=== PATIENT | female | born 1970 | race African-American/Black ===

== ENCOUNTER 2017-03-28 14:54 | Outpatient (CLI) | payer BC | END 2017-03-28 14:55 | disposition home or self-care (01) | LOC: BICMAMMO 14:54 | PROVIDERS: ATTEND Physician Assistant | DX: Z12.31 Encounter for screening mammogram for malignant neoplasm of breast (principal); N63.20 Unspecified lump in the left breast, unspecified quadrant | CPT/HCPCS: 77063; 77067 ==

== ENCOUNTER 2018-05-08 07:59 | Outpatient (CLI) | payer BC ==
--- NOTE | 2018-05-08 11:14 | MMO ---
Bilateral MAMMO Bilat Screen [facility]. CLINICAL HISTORY: Patient is 47 years old and is seen for screening. The patient has no family history of breast cancer. The patient has no personal history of cancer. The patient has a history of left needle biopsy in 2011 - benign. VIEWS: The views performed were: bilateral craniocaudal with tomosynthesis and bilateral mediolateral oblique with tomosynthesis. FILMS COMPARED: The present examination has been compared to prior imaging studies performed at [facility] on 03/28/2017, and at [facility] on 11/20/2011, 11/24/2011, 12/17/2012, 02/11/2014 and 03/11/2015. MAMMOGRAM FINDINGS: There are scattered fibroglandular densities. There is a stable round mass with associated biopsy clip seen in the left breast. There are no suspicious masses, suspicious calcifications, or new areas of architectural distortion. IMPRESSION: THERE IS NO MAMMOGRAPHIC EVIDENCE OF MALIGNANCY. A ROUTINE FOLLOW-UP MAMMOGRAM IN 1 YEAR IS RECOMMENDED. THE RESULTS OF THIS EXAM WERE SENT TO THE PATIENT. ACR BI-RADS Category 2 - Benign finding MAMMOGRAPHY NOTE: 1. A negative mammogram report should not delay a biopsy if a dominant of clinically suspicious mass is present. 2. Approximately 10% to 15% of breast cancers are not detected by mammography. 3. Adenosis and dense breasts may obscure an underlying neoplasm.
== END 2018-05-08 08:00 | disposition home or self-care (01) ==
LOC: BICMAMMO 07:59
PROVIDERS: ATTEND Physician Assistant
DX: Z12.31 Encounter for screening mammogram for malignant neoplasm of breast (principal)
CPT/HCPCS: 77063; 77067

== ENCOUNTER 2018-09-09 07:32 | Outpatient (CLI) | payer BC ==
--- NOTE | 2018-09-09 07:54 | ULT ---
Renal sonogram HISTORY: Hypertension. FINDINGS: Right kidney measures up to 8.2 cm and the left measures up to 9.2 cm. Each has a normal so nographic appearance. No evidence of mass, stone, or hydronephrosis. Urinary bladder is incompletely distended without focal abnormality. IMPRESSION: Normal exam.
== END 2018-09-09 07:33 | disposition home or self-care (01) ==
LOC: BICULT 07:32
PROVIDERS: ATTEND Internal Medicine Nephrology
DX: I12.9 Hypertensive chronic kidney disease with stage 1 through stage 4 chronic kidney disease, or unspecified chronic kidney disease (principal); N18.3 Chronic kidney disease, stage 3 (moderate)
CPT/HCPCS: 76770

== ENCOUNTER 2018-11-11 06:53 | Outpatient (CLI) | payer BC ==
--- NOTE | 2018-11-11 07:40 | ULT ---
Renal sonogram with duplex evaluation HISTORY: Renal failure. FINDINGS: The right kidney measures up to 8.7 cm length and the left 11.1 cm. Each has a normal sonog raphic appearance without evidence of mass, stone, or hydronephrosis. Urinary bladder is unremarkable with bilateral ureteral jets. Incidental note of uterine fibroid and heterogeneous echot exture. Good color and spectral Doppler flow within each renal artery and the aorta. No abnormally elevated p eak systolic velocities. Resistive index associated with the arcuate arteries of the right kidney is 0.7 and the left kidney 0.6. IMPRESSION: Normal abdominal sonogram and renal artery duplex evaluation
== END 2018-11-11 06:54 | disposition home or self-care (01) ==
LOC: BICULT 06:53
PROVIDERS: ATTEND Internal Medicine Nephrology
DX: I12.9 Hypertensive chronic kidney disease with stage 1 through stage 4 chronic kidney disease, or unspecified chronic kidney disease (principal); N18.3 Chronic kidney disease, stage 3 (moderate)
CPT/HCPCS: 76700; 76770

== ENCOUNTER 2019-03-28 06:35 | Outpatient (CLI) | payer BC ==
--- NOTE | 2019-03-28 13:23 | NM ---
RADIONUCLIDE PARATHYROID SCAN WITH PLANAR AND SPECT-CT IMAGES: HISTORY: Hyperparathyroidism, unspecified RADIOPHARMACEUTICAL:22.5mCi technetium 99m-sestamibi injected intravenously FINDINGS: There is physiologic uptake in the salivary glands and thyroid gland. The mass inferior to the left l obe of the thyroid gland which is likely a thyroid nodule. Evaluation with thyroid ultrasound is recommended. No abnormal areas of tracer localization are seen in the neck or chest. IMPRESSION: No scintigraphic evidence of parathyroid adenoma Probable left inferior thyroid lobe nodule.Thyroid ultrasound is recommended.
== END 2019-03-28 06:36 | disposition home or self-care (01) ==
LOC: NM 06:35
PROVIDERS: ATTEND Internal Medicine Nephrology
DX: E21.0 Primary hyperparathyroidism (principal)
CPT/HCPCS: 78072; A9503

== ENCOUNTER 2021-06-08 15:33 | Outpatient (CLI) | payer BC | END 2021-06-08 15:34 | disposition home or self-care (01) | LOC: BICMAMMO 15:33 | PROVIDERS: ATTEND Physician Assistant | DX: Z12.31 Encounter for screening mammogram for malignant neoplasm of breast (principal); Z91.89 Other specified personal risk factors, not elsewhere classified | CPT/HCPCS: 77063; 77067 ==